=== PATIENT | female | born 1955 | race Caucasian/White ===

== ENCOUNTER → 2018-03-10 13:36 | Outpatient (REF) | payer BC, SELFPAY ==
--- NOTE | 2018-03-10 13:00 | PAPFT_PTH ---
PATIENT: Kaley Oneill LOC: [facility] U#:[id number] AGE/SX: 70/F ROOM: RE03/10/[address]: JEANE Salazar : 1955 BED: DIS: SPEC #: [id number] RECD: 03/10/18 18:05 STATUS: CHRISTIANA REColleen #: [id number] HAMILTON: 03/10/18 13:[address]: Mckenzie Patel DEPT: [facility] Cytology RECD BY: Hallie Bhatt ENTERED: 03/10/18 18:05 SP TYPE: PAPFT OTHR DR: Wallace Bowling, Tissues: 1 - CX/ENDOCX FOR PAP SMEARS Procedures: PAP THIN PREP/UVM Screening HPV DNA PROBE Comments: [id number]
== END ==
LOC: LBN 13:36
PROVIDERS: PCP Emergency Medicine; Visit Provider Nurse Practitioner Family
DX: Z12.4 Encounter for screening for malignant neoplasm of cervix (principal); Z11.51 Encounter for screening for human papillomavirus (HPV)
CPT/HCPCS: 88142; 87624

== ENCOUNTER 2020-03-20 22:00 | Outpatient (REF) | payer BC, SELFPAY ==
[2020-03-20 22:31] LABS: Calculated LDL 115 mg/dL (<100); Cholesterol 209 mg/dL (<200); HDL Cholesterol 52 mg/dL (40-60); Triglyceride 211 mg/dL (<150)
== END 2020-03-20 22:20 ==
LOC: LBN 22:00
PROVIDERS: PCP Emergency Medicine; Visit Provider Emergency Medicine
DX: Z00.00 Encounter for general adult medical examination without abnormal findings (principal); Z13.220 Encounter for screening for lipoid disorders
CPT/HCPCS: 80061

== ENCOUNTER 2021-05-01 08:43 | Outpatient (REF) | payer BC, SELFPAY ==
--- NOTE | 2021-05-01 08:30 | PAPFT_PTH ---
PATIENT: Kaley Oneill LOC: N U#:[id number] AGE/SX: 65/F ROOM: RE05/01/[address]: JEANE Salazar : 1955 BED: DIS: 05/01/2021 SPEC #: [id number] RECD: 05/01/21 12:57 STATUS: CHRISTIANA REQ #: [id number] HAMIL[place]: 05/01/21 08:[address]: Mckenzie Patel DEPT: FORMERLY [facility], 1928–1983 Cytology RECD BY: Hallie Bhatt ENTERED: 05/01/21 12:58 SP TYPE: PAPFT OTHR DR: Wallace Bowling, Tissues: 1 - CX/ENDOCX FOR PAP SMEARS Procedures: PAP THIN PREP/UVM Screening HPV DNA PROBE Comments: [id number]
== END 2021-05-01 08:44 | disposition home or self-care (01) ==
LOC: LBN 08:43
PROVIDERS: PCP Emergency Medicine; Visit Provider Nurse Practitioner Family
DX: Z12.4 Encounter for screening for malignant neoplasm of cervix (principal); Z11.51 Encounter for screening for human papillomavirus (HPV)
CPT/HCPCS: 88142; 87624

== ENCOUNTER 2023-10-08 08:08 | Outpatient (CLI) | payer BC, SELFPAY ==
--- NOTE | 2023-10-08 08:00 | RT.EKG_ITS ---
APPROVED REPORT Exam: Resting ECG Reason for Exam: palpitations Patient Location: O HR:59 bpm ECG Measurements Heart Rate 59 AXIS MT 208 P 75 QRSd 101 QRS 63 QT 426 T 58 QTc 422 Conclusion Sinus rhythm...normal P axis, V-rate 50- 99 Probable left atrial enlargement...P >50mS, <-0.10mV V1 RSR' in V1 or V2, normal variant
== END 2023-10-08 08:09 | disposition home or self-care (01) ==
LOC: DI.CM 08:08
PROVIDERS: PCP Nurse Practitioner Family; Visit Provider Nurse Practitioner Family
DX: R00.2 Palpitations (principal)
CPT/HCPCS: 93010

== ENCOUNTER 2023-10-12 11:06 | Outpatient (CLI) | payer BC, SELFPAY ==
--- NOTE | 2023-10-12 11:00 | RT.EKG_ITS ---
APPROVED REPORT Exam: Resting ECG Reason for Exam: escalated heart rate Patient Location: O HR:105 bpm ECG Measurements Heart Rate 105 AXIS AK [id number] P [id number] QRSd 89 QRS -17 QT 343 T 4 QTc 454 Conclusion Atrial fibrillation...? atrial activity Borderline left axis deviation...QRS axis (-15,-29) RSR' in V1 or V2, probably normal variant...small R' only
== END 2023-10-12 11:07 | disposition home or self-care (01) ==
LOC: DI.CM 11:08
PROVIDERS: PCP Nurse Practitioner Family; Visit Provider Nurse Practitioner Family
DX: I49.9 Cardiac arrhythmia, unspecified (principal)
CPT/HCPCS: 93010

== ENCOUNTER 2023-10-12 17:50 | Outpatient (REF) | payer BC, SELFPAY ==
[2023-10-12 20:48] LABS: HCT 40.2 % (36.0-46.0); HGB 13.5 g/dL (11.2-15.7); MCH 29.5 pg (27.0-33.0); MCHC 33.6 % (32.0-36.0); MCV 88 fL (80-95); MPV 10.7 fL (8.0-11.0); Platelet Count 226 10^3/uL (130-400); RBC 4.58 10^6/uL (3.93-5.22); RDW 12.8 % (11.7-14.6); RDW-SD 41.3 fL; WBC 4.79 10^3/uL (4.4-10.8)
[2023-10-12 21:12] LABS: Anion Gap 10.7 mmol/L (3-11); BUN 19 mg/dL (7-18); CO2 25.3 mmol/L (21.0-32.0); CREATININE 0.8 mg/dL (0.55-1.02); Calcium 9.6 mg/dL (8.5-10.1); Chloride 101 mmol/L (98-107); Estimated GFR 80.71 (mL/min/1.73m2); Glucose 88 mg/dL (74-106); NT-proBNP 216 pg/mL (<300); Potassium 4.2 mmol/L (3.5-5.1); Sodium 137 mmol/L (136-145)
[2023-10-14 11:25] LABS: Lyme Ab w Rflx to Lyme Confirm Negative (Negative)
[2023-10-15 15:53] LABS: Anaplasma phagocytophilum Negative (Negative); B. miyamotoi PCR Negative (Negative); Babesia divergens/MO-1 Negative (Negative); Babesia duncani Negative (Negative); Babesia microti Negative (Negative); Ehrlichia chaffeensis Negative (Negative); Ehrlichia ewingii/canis Negative (Negative); Ehrlichia muris eauclairensis Negative (Negative)
== END 2023-10-12 17:51 | disposition home or self-care (01) ==
LOC: LBN 17:50
PROVIDERS: PCP Nurse Practitioner Family; Visit Provider Nurse Practitioner Family
DX: I48.91 Unspecified atrial fibrillation (principal)
CPT/HCPCS: 80048; 85027; 87798; 83880; 84443; 85610; 86618

== ENCOUNTER → 2023-10-22 00:45 | Outpatient (CLI) | payer BC, SELFPAY ==
--- NOTE | 2023-10-22 07:30 | DI.US_ITS ---
APPROVED REPORT EXAM: Comprehensive 2D, Doppler, and color-flow Echocardiogram Patient Location: Out-Patient Bag Printer: Rickie Vega RDCS (AE) Indications: New onset AFIB Conclusion Normal left ventricular wall thickness and chamber size. EF is 60-65%. Wall motion is normal Normal right ventricular size and function Both atria are normal in size The aortic valve is sclerotic and trileaflet without stenosis or regurgitation Normal mitral valve with trace regurgitation Normal tricuspid valve with mild regurgitation Estimated right ventricular systolic pressure is 28 mmHg Wall motion Left Ventricle The left ventricle is normal size. The left ventricular systolic function is normal. The left ventric ular ejection fraction is within the normal range. There is normal left ventricular wall thickness. T here is normal LV segmental wall motion. There is no ventricular septal defect visualized. LVEF is 60 -65%. Right Ventricle The right ventricle is normal size. The right ventricular systolic function is normal. Atria The left atrium size is normal. Right atrium is moderately dilated. The interatrial septum is intact with no evidence for an atrial septal defect. Aortic Valve The Aortic valve is sclerotic. Aortic valve is trileaflet. There is no aortic valvular stenosis. No a ortic regurgitation is present. Mitral Valve The mitral valve is normal in structure. No evidence of mitral valve stenosis. Trace mitral regurgita tion. Tricuspid Valve The tricuspid valve is normal in structure. There is no tricuspid valve stenosis. Mild tricuspid regu rgitation. The RVSP is 28.4 mmHg. Pulmonic Valve The pulmonary valve is normal in structure. There is no pulmonic valvular stenosis. There is no pulmo love valvular regurgitation. Great Vessels The aortic root is normal in size. Aortic arch is normal in caliber. IVC is normal in size and collap ses >50% with inspiration. Pericardium There is no pericardial effusion. 2D Dimensions IVSD d PLAX 0.58 cm F: 0.6-1.0 Ao Root d 2.85 cm F: 2.7 - 3.3 LVPW d PLAX 0.50 cm F: 0.6 - 1.0 LVID d PLAX 4.60 cm F: 3.8 - 5.2 LVDs 2.97 cm F: 2.2 - 3.5 LV EF Teichholz 65.0 % FS 35.51 % LV EDV (Teich) 97.5 mL LV ESV (Teich) 34.1 mL Stroke Vol Index (Teich) 38.42 M-Mode TAPSE 2.60 cm (M/F) >1.7 Auto EF LV EDV A4C 102.8 mL LV EDV A2C 128.5 mL LV EDV BP 114.2 mL LV ESV A4C 40.8 mL LV ESV A2C 46.5 mL LV ESV BP 43.4 mL LVEF(%) A4C 60.3 % LVEF(%) A2C 63.8 % LVEF(%) BP 62.0 % LV SV A4C 62.0 ml LV SV A2C 82.0 ml LV SV BP 70.7 ml LV CO A4C 3.2 L/min LV CO A2C 4.1 L/min LV CO BP 3.6 L/min HR A4C 50.99 BPM HR A2C 49.38 BPM LV EDV Index (BP) LA Volume LA Length A4C 4.2 cm LA Length A2C 3.4 cm LA Area A4C s 11.73 cm2 LA Area A2C s 11.42 cm2 LA Vol A4C A-L 27.80 mL LA Vol A2C A-L 32.22 mL LA Vol Biplane A-L 33.1 mL LA Vol/BSA A4C A-L LA Vol/BSA A2C A-L LA Vol/BSA BP A-L 20.1 mL/m2 LA Vol A4C MOD 24.6 mL LA Vol A2C MOD 27.3 mL LA Vol BP MOD 28.3 mL RA Volume RA Area A4C 13.3 cm2 RA ESV A4C (A-L) 39.3mL RA Vol/BSA A4C A-L RA Length A4C 3.8 cm RA ESV A4C (MOD) 38.3mL LV Diastology MV E' medial 0.108 (>0.07 m/s) MV E Vmax 1.06 (0.4-1.3 m/s) MV E/E' MED 9.86 (<14) MV A Vmax 0.90 (0.4-1.3 m/s) MV E' lateral 0.118 (>0.1 m/s) E/A Ratio 1.2 MV E/E' LAT 9.00 (<14) MV E' Average 0.113 m/s MV E/E'(average) 9.41 Aortic Valve AoV Vmax 1.26 m/s LVOT Vmax 0.90 m/s AoV Peak Grad 6.3 mmHg LVOT Peak Grad 3.2 mmHg AoV Area (Vmax) 2.42 cm2 LVOT VTI 0.226 m AoV VTI 0.316 m LVOT Mean Grad 1.6 mmHg AoV Mean Andriy. 0.93 m/s LVOT SV 76.93 mL AoV Mean Grad 3.7 mmHg LVOT Diam s 2.05 cm AoV Area (VTI) 2.44 cm2 Velocity Ratio 0.71 Mitral Valve MV DT 180 (160-240 msec) Pulmonary Valve PV Vmax 1.06 (0.5-1.5 m/s) RVOT Vmax 0.61 m/s PV Peak Grad 4.5 mmHg RVOT Peak Gr. 1.5 mmHg PV Mean Andriy 0.78 m/s RVOT VTI 0.160 m PV Mean Grad 2.6 mmHg RVOT Mean Gr. 0.9 mmHg Tricuspid Valve RA Pressure 3.00 mmHg TR Vmax 2.52 m/s TR Peak Grad 25.4 mmHg RVSP (TR) 28.4 mmHg
== END ==
PROVIDERS: PCP Nurse Practitioner Family; Visit Provider Nurse Practitioner Family
DX: I48.91 Unspecified atrial fibrillation (principal)
CPT/HCPCS: 93306

== ENCOUNTER 2023-10-26 08:03 | Outpatient (CLI) | payer BC, SELFPAY ==
--- NOTE | 2023-10-26 08:00 | RT.EKG_ITS ---
APPROVED REPORT Exam: Resting ECG Reason for Exam: afib Patient Location: O HR:57 bpm ECG Measurements Heart Rate 57 AXIS MI 200 P 46 QRSd 103 QRS 41 QT 428 T 47 QTc 417 Conclusion Sinus rhythm...normal P axis, V-rate 50- 99 Atrial premature complex...SV complex w/ short R-R interval RSR' in V1 or V2,
== END 2023-10-26 08:04 | disposition home or self-care (01) ==
LOC: DI.CARD 08:04
PROVIDERS: PCP Nurse Practitioner Family; Visit Provider Internal Medicine Cardiovascular Disease
DX: I48.91 Unspecified atrial fibrillation (principal)
CPT/HCPCS: 93010

== ENCOUNTER 2023-11-06 18:47 | Emergency (ER) | payer BC, SELFPAY ==
[2023-11-06 18:55] VITALS: BP 131/73; PULSE 86; RESP 16; TEMP 36.8; O2SAT 96
[2023-11-06 19:01] VITALS: BP 131/73; PULSE 86; RESP 16; TEMP 36.8; O2SAT 96
--- NOTE | 2023-11-06 20:23 | W.ED.GENAD ---
Discharge Plan Disposition Patient Disposition: Home Condition: Stable Discharge Details Clinical Impression: Cellulitis Primary Care Provider: Sesar Macedo ED Provider: Rambo Jc Home Meds and New Rx's Prescriptions: New cephalexin 500 mg capsule 500 mg PO TID 5 Days Qty: 15 0RF No Action albuterol sulfate 90 mcg/actuation HFA aerosol inhaler 2 puff Inhalation Q4H PRN Qty: 1 0RF Eliquis 5 mg tablet 5 mg PO BID Qty: 180 4RF Arnuity Ellipta 100 mcg/actuation blister with device 1 inh inhalation Q24H Qty: 30 12RF Discharge Instructions Instructions: Cellulitis (ED) HPI General Date/Time Provider Initiated Documentation: 11/06/23 20:09. HPI Narrative: 68-year-old female history of cellulitis presents concerned she is developing cellulitis of the forehead, noticed a lesion on her forehead a couple days ago and has noticed spreading redness down her forehead. Denies fevers chills sweats or other systemic signs of illness. Denies known history of MRSA Related Data Home Medications Medication Instructions Recorded Confirmed albuterol sulfate 90 mcg/actuation 2 puff inhalation Q4H PRN ##1 06/05/22 11/06/23 aerosol inhaler apixaban 5 mg tablet (Eliquis) 5 mg PO BID #180 tabs 10/12/23 11/06/23 fluticasone furoate 100 1 inh inhalation Q24H #30 ea 10/16/23 11/06/23 mcg/actuation blister powder for inhalation (Arnuity Ellipta) cephalexin 500 mg capsule 500 mg PO TID 5 days #15 caps 11/06/23 Previous Rx's Medication Instructions Recorded albuterol sulfate 90 mcg/actuation 2 puff inhalation Q4H PRN ##1 06/05/22 aerosol inhaler apixaban 5 mg tablet (Eliquis) 5 mg PO BID #180 tabs 10/12/23 fluticasone furoate 100 1 inh inhalation Q24H #30 ea 10/16/23 mcg/actuation blister powder for inhalation (Arnuity Ellipta) cephalexin 500 mg capsule 500 mg PO TID 5 days #15 caps 11/06/23 Allergies Allergy/AdvReac Type Severity Reaction Status Date / Time banana Allergy Severe THROAT Verified 11/06/23 18:59 HIVES POPPY SEED Allergy Unknown ORAL/FACIAL Uncoded 11/06/23 18:59 NUMBNESS General Stated Complaint: Cellulitis SYEDA: 4 Review of Systems Narrative: Review of Systems Constitutional: negative Eyes: negative ENT: negative Cardiovascular: negative Respiratory: negative Gastrointestinal: negative : negative Musculoskeletal: negative Skin: Skin lesion forehead Neurologic: negative Psych: negative Exam Narrative Exam Narrative: Physical Examination General: alert, awake, cooperative, resting comfortably, no acute distress HEENT: normocephalic, atraumatic Neck: supple, trachea midline; full ROM Chest: normal to inspection Respiratory: normal respiratory effort, speaking in full sentences Skin: 0.5 cm papule nonvesicular nonpustular to forehead, some surrounding erythema and induration, no fluctuance no purulence Neuro: AAOx3, normal speech, moving all extremities Psych: Appropriate mood and affect Course Vital Signs Vital signs: Vital Signs Temperature 36.8 C 11/06/23 18:55 Pulse 86 11/06/23 18:55 Respiratory Rate 16 11/06/23 18:55 Blood Pressure 131/73 11/06/23 18:55 Pulse Oximetry 96 11/06/23 18:55 Temperature 36.8 C 11/06/23 19:01 Temperature Source Skin 11/06/23 19:01 Pulse 86 11/06/23 19:01 Respiratory Rate 16 11/06/23 19:01 Respiratory Effort Normal, Non-Labored 11/06/23 19:00 Blood Pressure 131/73 11/06/23 19:01 Blood Pressure Position Sitting 11/06/23 19:01 Pulse Oximetry 96 11/06/23 19:01 Oxygen Delivery Method Room Air 11/06/23 19:01 Oxygen Flow Rate 0 11/06/23 19:01 Pain Level 0 11/06/23 19:01 Medical Decision Making 68-year-old female presents with lesion to forehead, developed over the last week, noted spreading redness around the area, no fluctuance no purulence mild induration erythema; likely comedone source of localized superficial cellulitis. Will start empiric Keflex. Home care instructions and strict turn precautions given. No periorbital involvement. No systemic signs of illness. No neurologic symptoms. Quality:SDOH Health Related Social Needs: No Data to Display PFSH All Active Problems (Updated 04/06/24 @ 20:29 by Rambo Jc MD) Cellulitis (Acute) Atrial fibrillation (Chronic) Medical History High cholesterol Asthma (01/29/15) Surgical History finger surgery Colonoscopy - MAC (07/14/16) Family History Mother No problems noted. Father , 54 Essential hypertension Heart disease Myocardial infarction Sister No problems noted. Sister No problems noted. Grandfather Essential hypertension Depression Paternal Grandfather No problems noted. Maternal Grandmother , 95 Essential hypertension Paternal Grandmother , 52 Diabetes Heart disease Brother Essential hypertension Hyperlipidemia Maternal Grandfather , 65 No problems noted. Social History Smoking/Tobacco Use Status: Former Tobacco Use tobacco type: cigarettes Tobacco: How many years used: 36 Second Hand Exposure: Yes Smoking risk assessment performed?: Yes Alcohol Intake: current Alcohol Intake frequency: a few times a week Alcohol type: beer Drug use: Never Substance use type: does not use Adopted: No Caregiver/Support person: No Foster care: No Household members: spouse Housing: house Number of Children: 2 number of grandchildren: 2 Communication Needs: None Education Level: college Do you need help understanding health information?: Never current occupation: retired Pets and animals: Yes Pets and animals: dog(s) and other Details: chickens Sexually active: Yes Do you think of yourself as: straight/heterosexual Current gender identity: female What is your relationship status?: How often do you talk on the phone with friends or family?: once per week How often do you get together with friends or relatives?: once per week Do you belong to any clubs or organized social groups?: yes Panel score (0-1 are the most socially isolated patients): 2 What type of physical activity do you participate in: other Details: Boot camp and running Duration: 45-60 minutes/day Frequency: 3-4 times per week Grazyna/Taoism: None Special grazyna needs: No Agree to transfusion: Yes Seatbelt use: sometimes Helmet use: Yes Helmet use: always Drive intox or ride w/intox screw driver operator: No Working smoke detector in home: Yes Carbon monox detector in home: Yes Firearms in home: Yes Firearms unloaded and locked: Yes Do you feel safe at home: Yes Do you feel safe in your relationship?: Yes Victim of physical abuse: No Victim of emotional abuse: No Victim of sexual abuse: No Female Reproductive History Menstrual Age of Menarche: 15 Duration of menses: 3-5 days control method: none Menopause type: natural History History 0 Para Hx # Term Pregnancies Multiple births Hx # Pregnancies Ectopic pregnancies AB induced Hx Number of Living Children AB spontaneous PAWSS Have you Been Recently Intoxicated or Drunk Within the Last 30 days?: No Have you Ever Experienced Previous Episodes of Alcohol Withdrawal?: No Have you ever Experienced Withdrawal Seizures?: No Have you ever Experienced Delirium Tremens(DT)s?: No Have you ever undergone Alcohol Rehabilitation Treatment (i.e, inpt ot outpatient treatment programs)?: No Have you ever Experienced Blackouts?: No Have you ever Combined Alcohol with other Downers within the last 90 days?: No Have you ever Combined Alcohol with any other Substance of Abuse during the last 90 days?: No Positive Blood Alcohol level on Presentation? [PCS.BAL]: No Evidence of Increased Autonomic Activity (i.e. HR>120, tremor, sweating, agitation, nausea)?: No Result: 0
[2023-11-06] MEDS: Cephalexin 500 MG CAP PO (20:27)
== END 2023-11-06 20:36 | disposition home or self-care (01) ==
PROVIDERS: Emergency Provider Emergency Medicine; PCP Nurse Practitioner Family
DX: L03.211 Cellulitis of face (principal); I48.91 Unspecified atrial fibrillation; Z79.01 Long term (current) use of anticoagulants; Z87.891 Personal history of nicotine dependence
CPT/HCPCS: 99283

== ENCOUNTER → 2024-10-24 09:29 | Outpatient (BNVA) | payer OTHER, SELFPAY | PROVIDERS: PCP Nurse Practitioner Family; Referring Provider Nurse Practitioner Family; Visit Provider Internal Medicine Cardiovascular Disease | DX: I48.0 Paroxysmal atrial fibrillation (principal) | CPT/HCPCS: 99213 ==

== ENCOUNTER 2025-07-12 01:31 | Outpatient (CLI) | payer OTHER, SELFPAY ==
[2025-07-12 14:57] LABS: ALT 18 U/L (10-49); AST 25 U/L (<34); Albumin 4.3 g/dL (3.2-5.0); Alkaline Phosphatase 74 U/L (46-116); Anion Gap 8.4 mmol/L (3-11); BUN 22 mg/dL (9-23); Bilirubin, Total 1.2 mg/dL (0.2-1.2); CO2 25.6 mmol/L (20.0-31.0); Calcium 9.5 mg/dL (8.3-10.6); Chloride 103 mmol/L (98-107); Cholesterol 212 mg/dL (<200); Glucose 88 mg/dL (74-106); HDL Cholesterol 68 mg/dL (>40); Potassium 4.6 mmol/L (3.5-5.1); Sodium 137 mmol/L (136-145); Total Protein 6.8 g/dL (5.7-8.2)
== END 2025-07-12 01:32 | disposition home or self-care (01) ==
LOC: LOS 01:31
PROVIDERS: PCP Nurse Practitioner Family; Visit Provider Nurse Practitioner Family
DX: Z13.220 Encounter for screening for lipoid disorders (principal)
CPT/HCPCS: 36415; 80053; 80061